=== PATIENT | male | born 1945 | race Caucasian/White ===

== ENCOUNTER 2019-07-28 08:31 | Day surgery (SDC) | payer OTHER ==
--- NOTE | 2019-07-24 15:52 | RAD REPORT ---
EXAM DESCRIPTION: RAD - Chest Pa And Lat (2 Views) - 07/24/2019 3:28 pm CLINICAL HISTORY: PRE OP, pending soft tissue mass removal COMPARISON: None TECHNIQUE: Frontal and lateral views of the chest were obtained. FINDINGS: The lungs are clear. Heart size is normal and central vasculature is within normal limit s. No pleural effusion or pneumothorax seen. No acute bony finding noted. No aortic abnormality. IMPRESSION: No acute cardiopulmonary process.
[2019-07-24 16:39] LABS: Absolute Lymphocytes (CBC) 1.2 K/uL (0.7-4.9); Basophils % 0.9 % (0-1.3); Hematocrit 42.4 % (39.6-49.0); Lymphocytes % 17.2 % (15.3-44.8); RBC Red Blood Cell Count 4.37 M/uL (4.33-5.43)
[2019-07-24 16:40] LABS: Potassium 4.8 mmol/L (3.5-5.1)
--- NOTE | 2019-07-25 11:53 | EKG ---
Test Date: 2019-07-24 Test Time: 14:02:15 Drywall Sander: PAULETTE MEASUREMENT RESULTS: Intervals: Rate: 67 GA: 176 QRSD: 86 QT: 398 QTc: 420 [place]: P: 37 GA: 176 QRS: -41 T: 50 INTERPRETIVE STATEMENTS: Normal sinus rhythm Left axis deviation Cannot rule out Inferior infarct, age undetermined Possible Anterior infarct, age undetermined Abnormal ECG Compared to ECG 05/30/2000 15:29:00 Left-axis deviation now present Myocardial infarct finding still present Electronically Signed On 07-25-19 11:50:25 CDT by Slade Jennings
[2019-07-28] MEDS ORDERED: NA CHLORIDE 0.9% 1,000 ML ONE ×2 (09:03→10:34)
[2019-07-28] MEDS ORDERED: CEFAZOLIN/SWI 1gm 1 GM/10 ML SYR ONE (09:03)
[2019-07-28] MEDS ORDERED: MIDAZOLAM HCL 2 MG/2 ML INJ ONE (09:45)
[2019-07-28] MEDS ORDERED: LIDOCAINE 2% MPF 5 ML VIAL ONE (09:45)
[2019-07-28] MEDS ORDERED: propofoL 200 MG/20 ML VIAL IV ONE (09:45)
[2019-07-28] MEDS ORDERED: FENTANYL CITR 100 MCG/2 ML ONE (10:05)
[2019-07-28] MEDS ORDERED: ONDANSETRON 4 MG/2 ML VIAL ONE (10:05)
[2019-07-28] MEDS ORDERED: KETOROLAC 30 MG/ML INJ ONE (10:05)
--- NOTE | 2019-07-28 10:10 | P.BOP ---
Preoperative diagnosis: infected chest wall subQ mass with abscess Postoperative diagnosis: same Primary procedure: Excisional biopsy of infected chest wall subQ mass 5x5cm Estimated blood loss: <10cc Specimen: mass and culture Findings: as above Anesthesia: General Complications: None Drain(s): Other
[2019-07-28] MEDS ORDERED: Phenylephrine HCl 10 MG/ML 1 ML VIAL ONE (10:32)
[2019-07-28 11:23] VITALS: BP 117/56; TEMP 97.4; O2SAT 97
--- NOTE | 2019-07-28 21:36 | OP ---
Date of Procedure: 07/28/2019 Surgeon: Rishabh Helms MD Preoperative Diagnosis: Infected chest wall subcutaneous mass with abscess. Postoperative Diagnosis: Infected chest wall subcutaneous mass with abscess. Procedure Performed: Excisional biopsy, infected chest wall subcutaneous mass with drainage of an ab scess. Anesthesia: General plus local. Findings: Mass with purulent discharge, abscess about 5 x 5 cm. Indications: This is the case of a 73-year-old patient complaining of chest wall mass, redness, eryt andres, and drainage. It has been like that for about 10 days. He has been on antibiotics for more th an 10 days and still there. He was sent to our office for drainage of an abscess and removal of the mass. It is very tender right near the sternum. The benefits, alternatives, and risks of excision w ere fully explained to the patient, which include but are not limited to infection, bleeding, damage to adjacent structures, anesthesia complication, recurrence, NM, and even . He also understands this may not relieve any symptoms, he might need more than one surgical intervention. He also under stands he will require wound care. The will be helping with that. Procedure In Detail: The patient was brought to the operating room, placed in supine position. Anes thesia was done without complication. The chest area was prepped and draped in a sterile fashion. M arcaine 0.5% was injected for local anesthetic, followed by sharp incision of skin and the mass was c ompletely excised. That led us access into an abscess cavity. The mass and abscess were removed. T he bone is not exposed at this time, although it is very close, it is in the chest area, we refer to the sternal bone. The area was irrigated. Hemostasis obtained. The area was packed with wet-to-dry dressing. Patient tolerated the procedure well. NEDA/BRAD Voice ID: [id number] Report ID: [id number]
--- NOTE | 2019-07-28 21:42 | DS ---
Date of Discharge: 07/28/2019 Diagnosis: Infected chest wall subcutaneous mass with abscess Procedure: Excisional biopsy, infected chest wall subcutaneous mass with abscess drainage. Disposition: Home. Activity: As tolerated. No heavy lifting. Followup: Followup in my office in 1 week. Call for appointment on [phone]. Wet-to-dry dressing d ailernesto. Medications: Tylenol No. 3 q.4 hours p.r.n. pain, normal saline. Patient already on antibiotics. NEDA/BRAD Voice ID: [id number] Report ID: [id number]
== END 2019-07-28 11:15 | disposition home or self-care (01) ==
LOC: OR 08:31
PROVIDERS: ATTEND Surgery
PROC: 0WB80ZZ Excision of Chest Wall, Open Approach (ICD-10-PCS; principal; 2019-07-28 09:30)
DX: L72.0 Epidermal cyst (principal); L02.213 Cutaneous abscess of chest wall
CPT/HCPCS: 93005; 87070; 85025; 80048; 36415; 87205; 82947 ×2; 88304; 87075; 71046; 11406; J2704; J2370; J2250; J3010; J0690; J7030 ×2; J2405